=== PATIENT | male | born 1990 ===

== ENCOUNTER 2017-12-11 01:28 | Emergency (ER) | payer BC ==
[2017-12-11 01:39] VITALS: BMI 25.8
--- NOTE | 2017-12-11 01:58 | ED PDOC ---
Arrival/HPI <Tay Grace - Last Filed: 12/11/17 10:37> - General Historian: Other (friend) EM Caveat: Intoxicated - History of Present Illness Time/Duration: Prior to Arrival Symptom Onset: Sudden Activities at Onset: Light Context: Home <Fredis Ortega - Last Filed: 12/11/17 19:13> - General Chief Complaint: Trauma Time Seen by Provider: 12/11/17 01:29 - History of Present Illness Narrative History of Present Illness (Text): 12/11/17 01:38 27 year old male, with no significant past medical history, presents to the emergency department for evaluation s/p multiple falls. As per friend, patient is intoxicated and hit his head twice in the bathtub and once down the stairs outside. Patient is a poor historian. Upon arrival patient is agitated and attempts to get up from bed. Patient will be sedated for the safety of himself and staff. HPI and ROS limited due to patient's state of intoxication. (Fredis Ortega) Past Medical History - Provider Review Nursing Documentation Reviewed: Yes - Psychiatric Hx Substance Use: No - Anesthesia Hx Anesthesia: No <Fredis Ortega - Last Filed: 12/11/17 19:13> Family/Social History - Physician Review Nursing Documentation Reviewed: Yes Family/Social History: No Known Family HX Smoking Status: Never Smoked Hx Alcohol Use: No Hx Substance Use: No <Fredis Ortega - Last Filed: 12/11/17 19:13> Allergies/Home Meds <Tay Grace - Last Filed: 12/11/17 10:37> <Fredis Ortega - Last Filed: 12/11/17 19:13> Allergies/Adverse Reactions: Allergies No Known Allergies Allergy (Unverified 12/11/17 01:39) Home Medications: Home Meds Medication Instructions Recorded Confirmed No Known Home Med 12/11/17 12/11/17 Review of Systems - Physician Review All systems were reviewed & negative as marked: Yes - Review of Systems Systems not reviewed;Unavailable: Intoxicated <Fredis Ortega - Last Filed: 12/11/17 19:13> Physical Exam Vital Signs Reviewed: Yes Temperature: Afebrile Blood Pressure: Hypertensive Pulse: Regular Respiratory Rate: Normal Appearance: Positive for: Well-Appearing, Non-Toxic, Comfortable Pain Distress: None Mental Status: Positive for: Alert and Oriented X 3 - Systems Exam Head: Present: Atraumatic, Normocephalic, Abrasion (to the forehead) Pupils: Present: PERRL Extroacular Muscles: Present: EOMI Conjunctiva: Present: Normal Mouth: Present: Moist Mucous Membranes Neck: Present: Normal Range of Motion Respiratory/Chest: Present: Clear to Auscultation, Good Air Exchange. No: Respiratory Distress, Accessory Muscle Use Cardiovascular: Present: Regular Rate and Rhythm, Normal S1, S2. No: Murmurs Abdomen: No: Tenderness, Distention, Peritoneal Signs Back: Present: Other (Abrasions to the upper and lower back) Upper Extremity: Present: Tenderness (Right shoulder tenderness). No: Cyanosis , Edema Lower Extremity: Present: Normal Inspection. No: Edema Neurological: Present: GCS=15, CN II-XII Intact, Speech Normal Skin: Present: Warm, Dry, Normal Color. No: Rashes Psychiatric: Present: Alert, Oriented x 3, Normal Insight, Normal Concentration <Fredis Ortega - Last Filed: 12/11/17 19:13> Vital Signs Temp Pulse Resp BP Pulse Ox 12/11/17 11:30 98.3 F 72 18 120/77 99 12/11/17 10:00 82 18 130/65 97 12/11/17 08:30 83 18 119/62 98 12/11/17 06:27 81 20 132/82 99 12/11/17 05:03 99 H 22 134/74 96 12/11/17 03:50 93 H 24 131/73 93 L 12/11/17 01:48 97.8 F 86 22 155/100 H 98 Medical Decision Making <Tay Grace - Last Filed: 12/11/17 10:37> - Lab Interpretations I have reviewed the lab results: Yes <Fredis Ortega - Last Filed: 12/11/17 19:13> ED Course and Treatment: 12/11/17 10:37 Patient is awake and alert and uncooperative. He reports that he lives in [place] and was out partying last night. He wants to go home and will take an uber. (Tay Grace) 12/11/17 01:38 Impression: 27 year old male presents intoxicated s/p multiple witness falls. Plan: -- Labs -- Ativan, Geodon Inj -- Urinalysis -- CT Cervical Spine w/o COntrast -- CT Chest, ABD, Pelvis W/IV Contrast -- CT Head w/o contrast -- Scapula Right X-ray -- Shoulder Right X-ray -- Urinalysis -- Reassess and disposition Progress Notes: Patient sedated for the safety of himself and staff 12/11/17 02:05 Code Star called. Patient fell off bed. Revaluated patient. EXAM: CT Head Without Intravenous Contrast Dictated and Authenticated by: Jaime Francis MD 12/11/2017 4:11 AM IMPRESSION: No definite acute intracranial abnormality EXAM: CT Cervical Spine Without Intravenous Contrast Dictated and Authenticated by: Jaime Francis MD 12/11/2017 4:14 AM IMPRESSION: No acute cervical spine fracture. EXAM: CT Chest With Intravenous Contrast Dictated and Authenticated by: Jaime Francis MD 12/11/2017 4:26 AM IMPRESSION: 1. Examination is somewhat limited by motion artifact 2. No definite acute thoracic pathology. EXAM: CT Abdomen and Pelvis With Intravenous Contrast Dictated and Authenticated by: Jaime Francis MD 12/11/2017 4:29 AM IMPRESSION: No definite acute abdominal pathologic finding Scapula Right X-ray Impression: As read by me, negative. Shoulder Right X-ray Impression: As read by me, negative (Fredis Ortega) - Lab Interpretations Lab Results: 12/11/17 02:15 12/11/17 02:15 Lab Results 12/11/17 02:15: Alcohol, Quantitative 359 H* 12/11/17 02:15: Sodium 145, Potassium 3.9, Chloride 104, Carbon Dioxide 24, Anion Gap 21 H, BUN 17, Creatinine 1.0, Est GFR ( Amer) > 60, Est GFR ( Non-Af Amer) > 60, Random Glucose 124 H, Calcium 8.9, Total Bilirubin 0.4, AST 41, ALT 31, Alkaline Phosphatase 87, Total Protein 8.1, Albumin 4.8, Globulin 3.2, Albumin/Globulin Ratio 1.5 12/11/17 02:15: WBC 11.0, RBC 5.13, Hgb 16.9, Hct 45.6, MCV 88.9, MCH 32.9, MCHC 37.1 H, RDW 12.8, Plt Count 263, MPV 9.1, Gran % 66.1, Lymph % (Auto) 27.9 , [place] % (Auto) 5.4, Eos % (Auto) 0.4 L, Baso % (Auto) 0.2, Gran # 7.28 H, Lymph # (Auto) 3.1, [place] # (Auto) 0.6, Eos # (Auto) 0.0, Baso # (Auto) 0.02 - RAD Interpretation Radiology Orders: 12/11/17 02:33 CERVICAL SPINE W/O CONTRAST [CT] Stat CHEST,ABD,PEL W/IV CONT ONLY [CT] Stat HEAD W/O CONTRAST [CT] Stat SHOULDER RIGHT [RAD] Stat 12/11/17 02:35 SCAPULA RIGHT [RAD] Stat - Medication Orders Current Medication Orders: Discontinued Medications Lorazepam (Ativan) 2 mg IM ONCE ONE PRN Reason: Protocol Stop: 12/11/17 01:39 Last Admin: 12/11/17 01:50 Dose: 2 mg IM Administration Charges Document 12/11/17 01:50 CNR (Rec: 12/11/17 01:51 CNR [id number]) Injection Site MAR Injection Site Left Vastus Lateralis Charges for Administration # of IM Administrations 1 Ziprasidone (Geodon Inj) 20 mg IM STAT STA PRN Reason: Protocol Stop: 12/11/17 01:39 Last Admin: 12/11/17 01:51 Dose: 20 mg IM Administration Charges Document 12/11/17 01:51 CNR (Rec: 12/11/17 01:51 [id number]) Injection Site MAR Injection Site Left Vastus Lateralis Charges for Administration # of IM Administrations 1 <Tay rGace - Last Filed: 12/11/17 10:37> - Scribe Statement The provider has reviewed the documentation as recorded by the Scribe <Fredis Ortega - Last Filed: 12/11/17 19:13> - Scribe Statement Hi Alvarado Provider Scribe Attestation: All medical record entries made by the Scribe were at my direction and personally dictated by me. I have reviewed the chart and agree that the record accurately reflects my personal performance of the history, physical exam, medical decision making, and the department course for this patient. I have also personally directed, reviewed, and agree with the discharge instructions and disposition. (Fredis Ortega) Disposition/Present on Arrival - Present on Arrival Any Indicators Present on Arrival: No History of DVT/PE: No History of Uncontrolled Diabetes: No Urinary Catheter: No History of Decub. Ulcer: No - Disposition Have Diagnosis and Disposition been Completed?: Yes Disposition Time: 10:38 Patient Plan: Discharge <Tay Grace - Last Filed: 12/11/17 10:37> - Present on Arrival History of DVT/PE: No History of Uncontrolled Diabetes: No Urinary Catheter: No History of Decub. Ulcer: No History Surgical Site Infection Following: None <Fredis Ortega - Last Filed: 12/11/17 19:13> - Disposition Diagnosis: Alcohol intoxication Disposition: HOME/ ROUTINE Condition: IMPROVED Discharge Instructions (ExitCare): Alcohol Abuse and Alcoholism (DC) Forms: [employer] (Lebanese)
[2017-12-11 02:30] LABS: BASO # 0.02 K/mm3 (0.0-2.0); BASO % 0.2 % (0.0-3.0); EOS % 0.4 % (1.5-5.0); GRAN # 7.28 (1.4-6.5); GRAN % 66.1 % (50.0-68.0); HEMOGLOBIN 16.9 g/dL (14.0-18.0); LYMPH # 3.1 (1.2-3.4); LYMPH % 27.9 % (22.0-35.0); MEAN CELL VOLUME 88.9 fl (80.0-105.0); MEAN CORPUSCULAR HEMOGLOBIN 32.9 pg (25.0-35.0); MEAN CORPUSCULAR HGB CONC 37.1 g/dl (31.0-37.0); MEAN PLATELET VOLUME 9.1 fl (7.0-11.0); MONO # 0.6 (0.1-0.6); MONO % 5.4 % (1.0-6.0); RBC 5.13 10^6/uL (3.5-6.1); RED CELL DISTRIBUTION WIDTH 12.8 % (11.5-14.5)
[2017-12-11 02:33] LABS: ALB/GLOB RATIO 1.5 (1.1-1.8); ALBUMIN 4.8 g/dL (3.0-4.8); CALCIUM 8.9 mg/dL (8.4-10.5); GFR AFRICAN-AMERICAN > 60; GFR NON-AFRICAN AMERICAN > 60
[2017-12-11 02:35] LABS: ALT/SGPT 31 U/L (7-56); AST/SGOT 41 U/L (17-59); BLOOD UREA NITROGEN 17 mg/dL (7-21)
[2017-12-11] MEDS ORDERED: Iohexol 350 MG/100 ML VIAL ONE (02:47)
[2017-12-11 08:30] VITALS: RESP 18
--- NOTE | 2017-12-11 11:42 | CT ---
Date of service: 12/11/2017 PROCEDURE: CT HEAD WITHOUT CONTRAST. HISTORY: fall down stairs COMPARISON: None available. TECHNIQUE: Axial computed tomography images were obtained through the head/brain without intravenous contrast. Radiation dose: Total exam DLP = 910 mGy-cm. This CT exam was performed using one or more of the following dose reduction techniques: Automated exposure control, adjustment of the mA and/or kV according to patient size, and/or use of iterative reconstruction technique. FINDINGS: HEMORRHAGE: No intracranial hemorrhage. BRAIN: No mass effect or edema. No atrophy or chronic microvascular ischemic changes. VENTRICLES: Unremarkable. No hydrocephalus. CALVARIUM: Unremarkable. PARANASAL SINUSES: Unremarkable as visualized. No significant inflammatory changes. MASTOID AIR CELLS: Unremarkable as visualized. No inflammatory changes. OTHER FINDINGS: The report concurs with the preliminary [facility] report IMPRESSION: No acute intracranial findings
--- NOTE | 2017-12-11 11:43 | CT ---
Date of service: 12/11/2017 PROCEDURE: CT Cervical Spine without contrast HISTORY: fall down stairs COMPARISON: None available. TECHNIQUE: Axial computed tomography images were obtained of the cervical spine without the use of intravenous contrast. Coronal and sagittal reformatted images were created and reviewed. Radiation dose: Total exam DLP = 481 mGy-cm. This CT exam was performed using one or more of the following dose reduction techniques: Automated exposure control, adjustment of the mA and/or kV according to patient size, and/or use of iterative reconstruction technique. FINDINGS: VERTEBRAE: No fracture. Normal alignment. No destructive bony lesion. DISCS/SPINAL CANAL/NEURAL FORAMINA: No significant central canal or neural foraminal stenosis. Discs heights are grossly preserved. PARASPINAL SOFT TISSUES: Unremarkable. OTHER FINDINGS: The report concurs with the preliminary [facility] report IMPRESSION: Unremarkable CT of the cervical spine.
--- NOTE | 2017-12-11 11:47 | CT ---
Date of service: 12/11/2017 PROCEDURE: CT Chest, Abdomen and Pelvis with intravenous contrast HISTORY: fall down stairs COMPARISON: None available. TECHNIQUE: IV dose administered: 100 cc of Omni 350 Radiation dose: Total exam DLP = 1189 mGy-cm. This CT exam was performed using one or more of the following dose reduction techniques: Automated exposure control, adjustment of the mA and/or kV according to patient size, and/or use of iterative reconstruction technique. FINDINGS: CT CHEST WITH CONTRAST: LUNGS: Clear. No nodule, mass or consolidation. MEDIASTINUM: Unremarkable. Normal caliber aorta and pulmonary arterial trunk. No aortic dissection. Normal size heart. LYMPH NODES: Unremarkable. PLEURA: Unremarkable. No pneumothorax. No pleural fluid. BONES: Unremarkable. OTHER FINDINGS: None. CT ABDOMEN AND PELVIS: LIVER: Unremarkable. No gross lesion or ductal dilatation. GALLBLADDER AND BILE DUCTS: Unremarkable. PANCREAS: Unremarkable. No gross lesion or ductal dilatation. SPLEEN: Unremarkable. ADRENALS: Unremarkable. No mass. KIDNEYS AND URETERS: Unremarkable. No hydronephrosis. No solid mass. VASCULATURE: Unremarkable. No aortic aneurysm. BOWEL: Unremarkable. No obstruction. No gross mural thickening. APPENDIX: Normal appendix. PERITONEUM: Unremarkable. No free fluid. No free air. LYMPH NODES: Unremarkable. No enlarged lymph nodes. BLADDER: Unremarkable. REPRODUCTIVE: Unremarkable. BONES: No acute fracture. OTHER FINDINGS: The report concurs with the preliminary [facility] report IMPRESSION: No acute intrathoracic or intra-abdominal findings.
--- NOTE | 2017-12-11 12:34 | RAD ---
Date of service: 12/11/2017 PROCEDURE: Radiographs of the Right Shoulder HISTORY: fall down stairs COMPARISON: No prior. FINDINGS: BONES: Normal. No fracture. JOINTS: Normal. Glenohumeral and acromioclavicular joints preserved. No osteoarthritis. SOFT TISSUES: Normal. OTHER FINDINGS: None. IMPRESSION: Normal radiographs of the right shoulder.
--- NOTE | 2017-12-11 12:35 | RAD ---
Date of service: 12/11/2017 PROCEDURE: The right scapula HISTORY: trauma COMPARISON: TECHNIQUE: Two views FINDINGS: There is no evidence of fracture or bony abnormality. IMPRESSION: Negative study
[2017-12-11 12:57] VITALS: BP 120/77; PULSE 72; TEMP 98.3; O2SAT 99
== END 2017-12-11 12:56 | disposition home or self-care (01) ==
LOC: ED 01:28
DX: F10.129 Alcohol abuse with intoxication, unspecified (principal)
CPT/HCPCS: 70450; 71260; 72125; 73010; 73030; 74177; 80053; 85025; 96372; 99285; G0480; J2060; J3486; Q9967